=== PATIENT | male | born 1990 | race Caucasian/White ===

== ENCOUNTER 2018-02-02 15:12 | Inpatient (IN) | payer MEDICAID ==
[~2018-02-02] VITALS: Ht 175.3 cm; Wt 75.0 kg
[2018-02-02] MEDS ORDERED: HydrOXYzine PAMOATE 50 MG CAPSULE PO PRN (18:15)
[2018-02-02] MEDS ORDERED: ACETAMINOPHEN 325 MG TABLET PO PRN (18:15)
[2018-02-02] MEDS ORDERED: ZOLPIDEM TARTRATE 10 MG TABLET PO PRN (18:15)
[2018-02-02] MEDS ORDERED: LOPERAMIDE HCL 2 MG CAPSULE PO PRN (18:15)
[2018-02-02] MEDS ORDERED: TUBERCULIN, PURIFIED PROTEIN DERIVATIVE 5 TU/0.1 ML SYG ID ONE (18:15)
[2018-02-02] MEDS ORDERED: OLANZapine 5 MG RAPDIS TABLET PO PRN (18:15)
[2018-02-02] MEDS ORDERED: PROMETHAZINE HCL 25 MG TABLET PO PRN (18:15)
[2018-02-02] MEDS ORDERED: MAGNESIUM HYDROXIDE SUSPENSION 30 ML UDCUP PO PRN (18:15)
[2018-02-02] MEDS ORDERED: GuaiFENesin/D-METHORPHAN [SUGAR-FREE] 200-20MG/10 ML SYRUP UDCUP PO PRN (18:15)
[2018-02-02] MEDS ORDERED: MAG HYDROX/AL HYDROX/SIMETH ES 30 ML SUSPENSION UDCUP PO PRN (18:15)
[2018-02-02] MEDS ORDERED: LORazepam 2 MG TABLET PO PRN (18:15)
[2018-02-02] MEDS ORDERED: INFLUENZA VIRUS VACCINE QVS 2017-18 (3YR+)/PF 60 MCG/0.5 ML SYRINGE IM ONE (18:45)
[2018-02-02 19:15] VITALS: BP 126/82
[2018-02-02] MEDS: THIAMINE HCL 100 MG TABLET PO SCH (19:33)
[2018-02-02] MEDS ORDERED: OLANZapine 5 MG RAPDIS TABLET PO SCH (21:00)
[2018-02-02] MEDS ORDERED: DIVALPROEX SODIUM 250 MG ER TABLET PO SCH (21:00)
[2018-02-03 06:32] VITALS: BP 118/65
[2018-02-03 08:08] LABS: BASOPHILS % (AUTO) 0.2 % (0.0-2.0); EOSINOPHILS % (AUTO) 1.9 % (1.0-6.0); HEMATOCRIT 48.8 % (41-53); HEMOGLOBIN 16.8 g/dL (13.5-17.5); LYMPHOCYTES % (AUTO) 49.4 % (22.0-44.0); MEAN CORPUSCULAR HEMOGLOBIN 30.1 pg (26.0-34.0); MEAN CORPUSCULAR HGB CONC 34.4 G/dL (31.0-37.0); MEAN CORPUSCULAR VOLUME 87 fL (80-100); MONOCYTES # (AUTO) 0.5 K/uL (0.1-1.0); MONOCYTES % (AUTO) 8.2 % (2.0-9.0); NEUTROPHILS # (AUTO) 2.4 K/uL (1.8-7.7); NEUTROPHILS % (AUTO) 40.3 % (40.0-70.0); PLATELET COUNT (AUTO) 178 K/uL (150-450); RED BLOOD CELL COUNT(AUTO) 5.59 MIL/uL (4.50-5.90); RED CELL DISTRIBUTION WIDTH 13.6 % (11.5-14.5)
[2018-02-03] MEDS: MULTIVITAMINS WITH MINERALS, THERAPEUTIC TABLET PO SCH (08:18)
[2018-02-03] MEDS: FOLIC ACID 1 MG TABLET PO SCH (08:19)
[2018-02-03] MEDS: THIAMINE HCL 100 MG TABLET PO SCH ×2 (08:19→16:30)
[2018-02-03 08:21] VITALS: BP 123/85
[2018-02-03 08:49] LABS: ALANINE AMINOTRANSFERASE 21 U/L (12-78); ALBUMIN 4.2 g/dL (3.4-5.0); ALKALINE PHOSPHATASE 98 U/L (46-116); ANION GAP 9 mmol/L (8-16); ASPARTATE AMINOTRANSFERASE 12 U/L (15-37); BILIRUBIN,TOTAL 0.5 mg/dL (0.1-1.0); CALCIUM, TOTAL 9.2 mg/dL (8.8-10.5); CARBON DIOXIDE 28 mmol/L (22-29); CHLORIDE 107 mmol/L (98-107); CHOLESTEROL 111 mg/dL (131-200); CREATININE 0.81 mg/dL (0.60-1.30); GLOMERULAR FILTR. RATE CALC > 60 mL/min (>60); GLUCOSE,RANDOM 85 mg/dL (70-110); HDL CHOLESTEROL 56 mg/dL (40-60); LDL CHOL (CALC.) 44 mg/dL (0-130); POTASSIUM 4.7 mmol/L (3.5-5.1); SODIUM SERUM 144 mmol/L (136-145); THYROID STIMULATING HORMONE 1.58 uIU/mL (0.36-3.74); TOTAL PROTEIN, SERUM 7.6 g/dL (6.4-8.2); TRIGLYCERIDES 55 mg/dL (15-150); UREA NITROGEN, BLOOD 13 mg/dL (7-18)
[2018-02-03 09:09] LABS: HEMOGLOBIN A1C 5.4 % (4.5-6.2)
[2018-02-03] MEDS ORDERED: PALIPERIDONE 1.5 MG ER TABLET PO PRN (15:45)
[2018-02-03 16:12] VITALS: BP 121/86
[2018-02-03] MEDS: PALIPERIDONE 3 MG ER TABLET PO SCH (20:32)
[2018-02-03] MEDS ORDERED: PALIPERIDONE PALMITATE 234 MG/1.5 ML SYRINGE IM ONE (21:00)
[2018-02-04 06:24] VITALS: BP 122/80
[2018-02-04] MEDS: FOLIC ACID 1 MG TABLET PO SCH (08:17)
[2018-02-04] MEDS: MULTIVITAMINS WITH MINERALS, THERAPEUTIC TABLET PO SCH (08:17)
[2018-02-04] MEDS: THIAMINE HCL 100 MG TABLET PO SCH ×2 (08:17→16:51)
[2018-02-04 08:26] VITALS: BP 124/79
[2018-02-04 16:13] VITALS: BP 110/86
[2018-02-04] MEDS: PALIPERIDONE 3 MG ER TABLET PO SCH (20:19)
[2018-02-05 06:28] VITALS: BP 118/65
[2018-02-05 08:16] VITALS: BP 124/74
[2018-02-05] MEDS: FOLIC ACID 1 MG TABLET PO SCH (08:24)
[2018-02-05] MEDS: THIAMINE HCL 100 MG TABLET PO SCH ×2 (08:24→16:02)
[2018-02-05] MEDS: MULTIVITAMINS WITH MINERALS, THERAPEUTIC TABLET PO SCH (08:24)
[2018-02-05] MEDS ORDERED: PALI156D IM (11:35)
[2018-02-05 16:08] VITALS: BP 126/70
[2018-02-06 06:57] VITALS: BP 110/62
[2018-02-06 08:25] VITALS: BP 120/74
[2018-02-06] MEDS: FOLIC ACID 1 MG TABLET PO SCH (08:38)
[2018-02-06] MEDS: THIAMINE HCL 100 MG TABLET PO SCH (08:38)
[2018-02-06] MEDS: MULTIVITAMINS WITH MINERALS, THERAPEUTIC TABLET PO SCH (08:38)
[2018-02-07] MEDS ORDERED: PALIPERIDONE PALMITATE 156 MG/ML SYRINGE IM ONE (09:00)
== END 2018-02-06 14:54 | disposition home or self-care (01) | DRG 750 ==
LOC: B2S 17:38
PROVIDERS: ADMIT Psychiatry & Neurology Psychiatry; ATTEND Psychiatry & Neurology Psychiatry
DX: F20.0 Paranoid schizophrenia (principal); Z91.14 Patient's other noncompliance with medication regimen; F17.200 Nicotine dependence, unspecified, uncomplicated; Z91.19 Patient's noncompliance with other medical treatment and regimen; Z59.0 Homelessness
CPT/HCPCS: 83036; 84439; 84443; 86592; 87081